=== PATIENT | male | born 1980 | race Two or more races ===

== ENCOUNTER 2019-02-28 13:40 | Emergency (ER) | payer SELFPAY ==
[~2019-02-28] VITALS: Ht 162.6 cm; Wt 108.9 kg
[2019-02-28] MEDS ORDERED: IV NORMAL SALINE 1000ML BAG 1,000 ML IV ONE (15:30)
--- NOTE | 2019-02-28 16:01 | RAD ---
Examination: Acute abdomen series HISTORY: History of constipation, abdominal pain COMPARISON: None available. FINDINGS: Low lung volumes and technique accentuates heart size and pulmonary vascularity. Minimal bibasilar lung atelectasis or infiltrates. No evidence of free air noted under the hemidiaphragm. Large amount of stool identified throughout the colon. IMPRESSION: 1. Large amount of stool identified throughout the colon likely constipation or fecal impaction. 2. Minimal bibasilar lung airspace opacities likely atelectasis or infiltrates. Electronically signed by: Benjamin Fox MD (02/28/2019 3:59 PM) [id number]
[2019-02-28 16:04] LABS: BILIRUBIN,URINE SMALL (NEG); CLARITY,URINE CLEAR; COLOR,URINE AMBER; NITRITE,URINE NEGATIVE (NEG); PROTEIN,URINE 30 mg/dL (NEG-TRACE)
--- NOTE | 2019-02-28 16:05 | PHYS DOC ---
Past Medical History Past Medical History: Diabetes-Type II Past Surgical History: No Surgical History Alcohol Use: None Drug Use: None Adult General Chief Complaint Chief Complaint: ABDOMINAL PAIN HPI HPI Patient is a 38 year old male, accompanied by his , with complaints of abdominal pain for 2-3 months and constipation for the last month with small hard stools. Patient also states he is a type II diabetic and he left his metformin in [place] two months ago. Patient and his state that he recently moved here from [place] and he has not established care with a primary care physician in this area yet. Patient states his last bowel movement was earlier today and was small hard balls of stool. He denies any rectal bleeding, fever, dysuria, back pain, vomiting, or diarrhea. Patient states he does feel a little nauseated. Currently he rates the pain as a 10/10 on the pain scale, he denies any alleviating factors. Review of Systems Review of Systems Constitutional: Denies fever or chills [] Eyes: Denies redness, or eye pain [] HENT: Denies nasal congestion or sore throat [] Respiratory: Denies cough or shortness of breath [] Cardiovascular: No additional information not addressed in HPI [] GI: see HPI : Denies dysuria or hematuria [] Musculoskeletal: Denies back pain or joint pain [] Integument: Denies rash or skin lesions [] Neurologic: Denies headache, focal weakness or sensory changes [] Endocrine: Denies polyuria or polydipsia, see HPI [] Complete systems were reviewed and found to be within normal limits, except as documented in this note. Current Medications Current Medications Current Medications Medications (Trade) Dose Ordered Sig/Cassidy Start Time Stop Time Status Last Admin Dose Admin Potassium Chloride (Klor-Con) 40 meq 1X ONCE 02/28/19 16:45 02/28/19 17:19 DC 02/28/19 17:49 40 MEQ Sodium Chloride 1,000 ml @ 1,000 mls/hr 1X ONCE 02/28/19 15:30 02/28/19 17:19 DC 02/28/19 16:25 1,000 MLS/HR Allergies Allergies Allergies Coded Allergies Type Severity Reaction Last Updated Verified No Known Drug Allergies 02/28/19 No Physical Exam Physical Exam Constitutional: Well developed, well nourished, no acute distress, non-toxic appearance. [] HENT: Normocephalic, atraumatic, bilateral external ears normal, oropharynx moist, no oral exudates, nose normal. [] Eyes: conjunctiva normal, no discharge. [] Neck: Normal range of motion, no stridor. [] Cardiovascular:Heart rate regular rhythm, no murmur [] Lungs & Thorax: Bilateral breath sounds clear to auscultation [] Abdomen: Bowel sounds normal, soft, reports tenderness with palpation of all 4 quadrants, no guarding, no rebound tenderness, no masses, no pulsatile masses. [] Skin: Warm, dry, no erythema, no rash. [] Back: No CVA tenderness. [] Extremities: No cyanosis, ROM intact, no edema. [] Neurologic: Alert and oriented X 3, no focal deficits noted. [] Psychologic: Affect normal, judgement normal, mood normal. [] Current Patient Data Vital Signs Vital Signs Date Time Temp Pulse Resp B/P (MAP) Pulse Ox O2 Delivery O2 Flow Rate FiO2 02/28/19 16:34 68 16 130/85 (100) 100 Room Air 02/28/19 15:18 98.8 98.8 Lab Values Laboratory Tests Test 02/28/19 15:10 02/28/19 15:48 02/28/19 16:00 Glucose (Fingerstick) 226 mg/dL (70-99) H Urine Collection Type Unknown Urine Color Dorcas Urine Clarity Clear Urine pH 6.0 Urine Specific [place] >=1.030 Urine Protein 30 mg/dL (NEG-TRACE) Urine Glucose (UA) 500 mg/dL (NEG) Urine Ketones (Stick) Negative mg/dL (NEG) Urine Blood Negative (NEG) Urine Nitrite Negative (NEG) Urine Bilirubin Small (NEG) Urine Urobilinogen Dipstick 1.0 mg/dL (0.2 mg/dL) Urine Leukocyte Esterase Small (NEG) Urine RBC 0 /HPF (0-2) Urine WBC 20-40 /HPF (0-4) Urine Squamous Epithelial Cells Mod /LPF Urine Bacteria 0 /HPF (0-FEW) Urine Mucus Mod /LPF White Blood Count 12.5 x10^3/uL (4.0-11.0) H Red Blood Count 4.98 x10^6/uL (4.30-5.70) Hemoglobin 15.3 g/dL (13.0-17.5) Hematocrit 44.2 % (39.0-53.0) Mean Corpuscular Volume 89 fL (79-100) Mean Corpuscular Hemoglobin 31 pg (25-35) Mean Corpuscular Hemoglobin Concent 35 g/dL (31-37) Red Cell Distribution Width 12.3 % (11.5-14.5) Platelet Count 174 x10^3/uL (140-400) Neutrophils (%) (Auto) 64 % (31-73) Lymphocytes (%) (Auto) 24 % (24-48) Monocytes (%) (Auto) 6 % (0-9) Eosinophils (%) (Auto) 6 % (0-3) H Basophils (%) (Auto) 1 % (0-3) Neutrophils # (Auto) 8.0 x10^3/uL (1.8-7.7) H Lymphocytes # (Auto) 3.0 x10^3/uL (1.0-4.8) Monocytes # (Auto) 0.8 x10^3/uL (0.0-1.1) Eosinophils # (Auto) 0.7 x10^3/uL (0.0-0.7) Basophils # (Auto) 0.1 x10^3/uL (0.0-0.2) Sodium Level 134 mmol/L (136-145) L Potassium Level 3.3 mmol/L (3.5-5.1) L Chloride Level 98 mmol/L (98-107) Carbon Dioxide Level 28 mmol/L (21-32) Anion Gap 8 (6-14) Blood Urea Nitrogen 11 mg/dL (8-26) Creatinine 0.7 mg/dL (0.7-1.3) Estimated GFR (Cockcroft-Gault) 126.9 BUN/Creatinine Ratio 16 (6-20) Glucose Level 233 mg/dL (70-99) H Calcium Level 9.0 mg/dL (8.5-10.1) Total Bilirubin 0.8 mg/dL (0.2-1.0) Aspartate Amino Transferase (AST) 14 U/L (15-37) L Alanine Aminotransferase (ALT) 25 U/L (16-63) Alkaline Phosphatase 128 U/L (46-116) H Total Protein 8.1 g/dL (6.4-8.2) Albumin 3.4 g/dL (3.4-5.0) Albumin/Globulin Ratio 0.7 (1.0-1.7) L Laboratory Tests 02/28/19 16:00 Laboratory Tests 02/28/19 16:00 EKG EKG [] Radiology/Procedures Radiology/Procedures PROCEDURE: ACUTE ABDOMEN SERIES Examination: Acute abdomen series HISTORY: History of constipation, abdominal pain COMPARISON: None available. FINDINGS: Low lung volumes and technique accentuates heart size and pulmonary vascularity. Minimal bibasilar lung atelectasis or infiltrates. No evidence of free air noted under the hemidiaphragm. Large amount of stool identified throughout the colon. IMPRESSION: 1. Large amount of stool identified throughout the colon likely constipation or fecal impaction. 2. Minimal bibasilar lung airspace opacities likely atelectasis or infiltrates. [] Course & Med Decision Making Course & Med Decision Making Pertinent Labs and Imaging studies reviewed. (See chart for details) Dx: constipation, hyperglycemia AAS revealed a large amount of stool identified throughout the colon likely constipation or fecal impaction. Pt was given a milk of molasses enema in the department and reported feeling better after having BM. CBC unremarkable. Na 133, Kcl 3.3, glucose 233, alk phos 128. Pt was given 40 meq PO Kcl in the department and 1 L of NS. VSS, pain improved. Prescription written for metformin 500 mg PO BID, #60. Pt given list of primary care doctors to establish care with. Recommend 1 capful of miralax twice daily until stools are soft then once a day until stools are regular. Return to the ER if sx worsen, Patient verbalized an understanding of home care, medications, follow-up, and return to ED instructions and was in agreement with the plan of care. [] Dragon Disclaimer Dragon Disclaimer This electronic medical record was generated, in whole or in part, using a voice recognition dictation system. Departure Departure Impression: Primary Impression: Constipation Additional Impression: Hyperglycemia Disposition: 01 HOME, SELF-CARE Condition: STABLE Referrals: NO PCP (PCP) Patient Instructions: Constipation, Adult, [id number], Hyperglycemia, [id number] Additional Instructions: Fill the prescription and use as directed. Recommend you drink 1 capful of miralax twice a day until your bowel movements are soft, then one capful daily until bowel movements are regular. Follow up with a primary care doctor using the list provided. Return to the ER if symptoms worsen. Scripts Metformin Hcl (METFORMIN HCL) 500 Mg Tablet 500 MG PO BIDWMEALS for ANTI-DIABETIC for 30 Days, #60 TAB 0 Refills Prov: TRISHA SOLARES APRN 02/28/19 Problem Qualifiers Primary Impression: Constipation Constipation type: unspecified constipation type Qualified Codes: K59.00 - Constipation, unspecified TRISHA SOLARES APRN Feb 28, 2019 16:05
[2019-02-28 16:09] LABS: BASO # 0.1 x10^3/uL (0.0-0.2); BASO % 1 % (0-3); EOS # 0.7 x10^3/uL (0.0-0.7); EOS % 6 % (0-3); HEMATOCRIT 44.2 % (39.0-53.0); HEMOGLOBIN 15.3 g/dL (13.0-17.5); LYMPH % 24 % (24-48); MEAN CORPUSCULAR HEMOGLOBIN 31 pg (25-35); MEAN CORPUSCULAR HGB CONC 35 g/dL (31-37); MEAN CORPUSCULAR VOLUME 89 fL (79-100); MONO # 0.8 x10^3/uL (0.0-1.1); MONO % 6 % (0-9); NEUT % 64 % (31-73); PLATELET COUNT 174 x10^3/uL (140-400); RED BLOOD COUNT 4.98 x10^6/uL (4.30-5.70); RED CELL DISTRIBUTION WIDTH 12.3 % (11.5-14.5); WHITE BLOOD COUNT 12.5 x10^3/uL (4.0-11.0)
[2019-02-28 16:20] LABS: CREATININE 0.7 mg/dL (0.7-1.3); GFR 126.9; POTASSIUM 3.3 mmol/L (3.5-5.1)
[2019-02-28 16:20] LABS: BACTERIA,URINE 0 /HPF (0-FEW); RBC,URINE 0 /HPF (0-2); SQUAMOUS EPITHELIAL CELL,UR MOD /LPF; WBC,URINE 20-40 /HPF (0-4)
[2019-02-28 16:26] LABS: ALBUMIN 3.4 g/dL (3.4-5.0); ALBUMIN/GLOBULIN RATIO 0.7 (1.0-1.7); TOTAL BILIRUBIN 0.8 mg/dL (0.2-1.0); TOTAL PROTEIN 8.1 g/dL (6.4-8.2)
[2019-02-28 16:34] VITALS: BP 130/85
[2019-02-28] MEDS ORDERED: POTASSIUM CHLORIDE 20 MEQ TABLET.ER. PO ONE (16:45)
[2019-02-28] MEDS ORDERED: METF500T16 PO (17:37)
== END 2019-02-28 18:01 | disposition home or self-care (01) ==
LOC: ER 13:40
DX: K59.00 Constipation, unspecified (principal); E11.65 Type 2 diabetes mellitus with hyperglycemia; R11.0 Nausea
CPT/HCPCS: 36415; 74022; 80053; 81001; 82962; 85025; 87086; 96360; 96361; 99285; J7030

== ENCOUNTER 2019-05-20 10:10 | Emergency (ER) | payer SELFPAY ==
[~2019-05-20] VITALS: Ht 162.6 cm; Wt 92.1 kg
[~2019-05-20 10:10] MED LIST: METF500T16 PO
[2019-05-20] MEDS ORDERED: MAGNESIUM HYDROXIDE 2,400 MG/30 ML ORAL.SUSP. PO ONE (10:45)
[2019-05-20] MEDS ORDERED: IV NORMAL SALINE 1000ML BAG 1,000 ML IV ONE (10:45)
[2019-05-20] MEDS ORDERED: fentaNYL PF VIAL 100 MCG/2 ML VIAL IV ONE (10:45)
[2019-05-20] MEDS ORDERED: ONDANSETRON PF 4 MG/2 ML VIAL. IV ONE (10:45)
[2019-05-20 11:03] LABS: BASO # 0.1 x10^3/uL (0.0-0.2); BASO % 1 % (0-3); EOS # 0.5 x10^3/uL (0.0-0.7); EOS % 5 % (0-3); HEMATOCRIT 45.1 % (39.0-53.0); HEMOGLOBIN 15.6 g/dL (13.0-17.5); LYMPH # 2.4 x10^3/uL (1.0-4.8); LYMPH % 22 % (24-48); MEAN CORPUSCULAR HEMOGLOBIN 30 pg (25-35); MEAN CORPUSCULAR HGB CONC 35 g/dL (31-37); MEAN CORPUSCULAR VOLUME 86 fL (79-100); MONO # 0.5 x10^3/uL (0.0-1.1); MONO % 5 % (0-9); NEUT # 7.3 x10^3/uL (1.8-7.7); NEUT % 68 % (31-73); PLATELET COUNT 169 x10^3/uL (140-400); RED BLOOD COUNT 5.24 x10^6/uL (4.30-5.70); RED CELL DISTRIBUTION WIDTH 12.8 % (11.5-14.5); WHITE BLOOD COUNT 10.8 x10^3/uL (4.0-11.0)
[2019-05-20 11:17] LABS: ALBUMIN 3.2 g/dL (3.4-5.0); ALBUMIN/GLOBULIN RATIO 0.7 (1.0-1.7); CREATININE 0.8 mg/dL (0.7-1.3); GFR 108.8; MAGNESIUM 1.7 mg/dL (1.8-2.4); TOTAL BILIRUBIN 0.5 mg/dL (0.2-1.0); TOTAL PROTEIN 8.1 g/dL (6.4-8.2)
[2019-05-20 11:26] LABS: POTASSIUM 2.9 mmol/L (3.5-5.1)
[2019-05-20 11:31] LABS: BILIRUBIN,URINE SMALL (NEG); CLARITY,URINE CLEAR; COLOR,URINE AMBER; NITRITE,URINE NEGATIVE (NEG); PROTEIN,URINE 30 mg/dL (NEG-TRACE)
[2019-05-20 11:38] LABS: BACTERIA,URINE 0 /HPF (0-FEW); RBC,URINE 0 /HPF (0-2); SQUAMOUS EPITHELIAL CELL,UR MANY /LPF
[2019-05-20] MEDS ORDERED: POTASSIUM CHLORIDE 20 MEQ TABLET.ER. PO ONE (11:45)
[2019-05-20] MEDS ORDERED: MAGNESIUM OXIDE 400 MG TABLET PO ONE (11:45)
--- NOTE | 2019-05-20 11:45 | RAD ---
Indication: Right-sided abdominal pain, constipation TECHNIQUE: Acute abdominal series COMPARISON: 02/28/2019 FINDINGS: Heart is normal in size. Lungs are clear. No subdiaphragmatic lucency to suggest large pneumoperitoneum. No abnormally dilated bowel loops or air-fluid levels. Mild to moderate proximal colonic stool burden. Moderate rectal stool burden. Visualized bones are within normal limits. IMPRESSION: Moderate colonic and rectal stool burden, patient may be considered. No evidence of high-grade bowel obstruction. Electronically signed by: Luis Manuel Syed DO (05/20/2019 11:42 AM) [id number]
[2019-05-20] MEDS ORDERED: POTA20TA82 PO (12:17)
--- NOTE | 2019-05-20 12:18 | PHYS DOC ---
Past Medical History Past Medical History: Constipation, Diabetes-Type II Past Surgical History: No Surgical History Alcohol Use: None Drug Use: None Adult General Chief Complaint Chief Complaint: CONSTIPATION HPI HPI Patient is a 38 year old male, accompanied by his significant other, who presents to the emergency department with complaints of constipation for over a week. Patient states that he has not had a bowel movement in over a week, prior to that he did not have a bowel movement for 2 weeks. He denies any rectal pain, or bleeding. Patient complains of right-sided abdominal pain that radiates through to his back. He denies any nausea, vomiting, diarrhea, fever, cough, shortness of breath, chest pain, or other complaints. Currently rates his pain a 8 out of 10 on the pain scale, he denies any alleviating or exacerbating factors. Patient is a type II diabetic with a supposed take metformin, however he states he is not taking medication because it makes his stomach hurt. He denies any polyuria, polydipsia or polyphagia. Review of Systems Review of Systems Constitutional: Denies fever or chills [] Eyes: Denies change in visual acuity, redness, or eye pain [] HENT: Denies nasal congestion or sore throat [] Respiratory: Denies cough or shortness of breath [] Cardiovascular: No additional information not addressed in HPI [] GI: See HPI : Denies dysuria or hematuria [] Musculoskeletal: Denies back pain Integument: Denies rash or skin lesions [] Neurologic: Denies headache Endocrine: Denies polyuria or polydipsia [] Complete systems were reviewed and found to be within normal limits, except as documented in this note. Current Medications Current Medications Current Medications Medications (Trade) Dose Ordered Sig/Cassidy Start Time Stop Time Status Last Admin Dose Admin Fentanyl Citrate (Fentanyl 2ml Vial) 50 mcg 1X ONCE 05/20/19 10:45 05/20/19 10:56 DC 05/20/19 11:04 50 MCG Magnesium Hydroxide (Milk Of Magnesia) 2,400 mg 1X ONCE 05/20/19 10:45 05/20/19 10:56 DC 05/20/19 11:03 2,400 MG Magnesium Oxide (Magnesium Oxide) 400 mg 1X ONCE 05/20/19 11:45 05/20/19 11:46 DC 05/20/19 12:20 400 MG Ondansetron HCl (Zofran) 4 mg 1X ONCE 05/20/19 10:45 05/20/19 10:56 DC 05/20/19 11:03 4 MG Potassium Chloride (Klor-Con) 40 meq 1X ONCE 05/20/19 11:45 05/20/19 11:46 DC 05/20/19 12:20 40 MEQ Sodium Chloride 1,000 ml @ 1,000 mls/hr 1X ONCE 05/20/19 10:45 05/20/19 11:44 DC 05/20/19 11:03 1,000 MLS/HR Allergies Allergies Allergies Coded Allergies Type Severity Reaction Last Updated Verified No Known Drug Allergies 02/28/19 No Physical Exam Physical Exam Constitutional: Well developed, well nourished, no acute distress, non-toxic appearance, obese. [] HENT: Normocephalic, atraumatic, bilateral external ears normal, oropharynx moist, no oral exudates, nose normal. [] Eyes: PERRLA, EOMI, conjunctiva normal, no discharge. [] Neck: Normal range of motion, no tenderness, supple, no stridor. [] Cardiovascular:Heart rate regular rhythm, no murmur [] Lungs & Thorax: Bilateral breath sounds clear to auscultation [] Abdomen: Bowel sounds normal, soft, RUQ tenderness to palpation, no rebound tenderness, no guarding, no masses, no pulsatile masses. Rectal Exam: Normal tone, No mass, Positive control Stool: Brown, large amount of firm stool in rectum Skin: Warm, dry, no erythema, no rash. [] Back: No tenderness, no CVA tenderness. [] Extremities: No cyanosis, ROM intact, no edema. [] Neurologic: Alert and oriented X 3, no focal deficits noted. [] Psychologic: Affect normal, judgement normal, mood normal. [] Current Patient Data Vital Signs Vital Signs Date Time Temp Pulse Resp B/P (MAP) Pulse Ox O2 Delivery O2 Flow Rate FiO2 05/20/19 11:04 17 97 Room Air 05/20/19 10:22 97.9 101 120/80 (93) 97.9 Lab Values Laboratory Tests Test 05/20/19 10:25 05/20/19 10:54 05/20/19 11:23 Glucose (Fingerstick) 237 mg/dL (70-99) H White Blood Count 10.8 x10^3/uL (4.0-11.0) Red Blood Count 5.24 x10^6/uL (4.30-5.70) Hemoglobin 15.6 g/dL (13.0-17.5) Hematocrit 45.1 % (39.0-53.0) Mean Corpuscular Volume 86 fL (79-100) Mean Corpuscular Hemoglobin 30 pg (25-35) Mean Corpuscular Hemoglobin Concent 35 g/dL (31-37) Red Cell Distribution Width 12.8 % (11.5-14.5) Platelet Count 169 x10^3/uL (140-400) Neutrophils (%) (Auto) 68 % (31-73) Lymphocytes (%) (Auto) 22 % (24-48) L Monocytes (%) (Auto) 5 % (0-9) Eosinophils (%) (Auto) 5 % (0-3) H Basophils (%) (Auto) 1 % (0-3) Neutrophils # (Auto) 7.3 x10^3/uL (1.8-7.7) Lymphocytes # (Auto) 2.4 x10^3/uL (1.0-4.8) Monocytes # (Auto) 0.5 x10^3/uL (0.0-1.1) Eosinophils # (Auto) 0.5 x10^3/uL (0.0-0.7) Basophils # (Auto) 0.1 x10^3/uL (0.0-0.2) Sodium Level 137 mmol/L (136-145) Potassium Level 2.9 mmol/L (3.5-5.1) *L Chloride Level 101 mmol/L (98-107) Carbon Dioxide Level 28 mmol/L (21-32) Anion Gap 8 (6-14) Blood Urea Nitrogen 11 mg/dL (8-26) Creatinine 0.8 mg/dL (0.7-1.3) Estimated GFR (Cockcroft-Gault) 108.8 BUN/Creatinine Ratio 14 (6-20) Glucose Level 251 mg/dL (70-99) H Calcium Level 9.0 mg/dL (8.5-10.1) Magnesium Level 1.7 mg/dL (1.8-2.4) L Total Bilirubin 0.5 mg/dL (0.2-1.0) Aspartate Amino Transferase (AST) 13 U/L (15-37) L Alanine Aminotransferase (ALT) 19 U/L (16-63) Alkaline Phosphatase 112 U/L (46-116) Total Protein 8.1 g/dL (6.4-8.2) Albumin 3.2 g/dL (3.4-5.0) L Albumin/Globulin Ratio 0.7 (1.0-1.7) L Lipase 50 U/L (73-393) L Urine Collection Type Unknown Urine Color Dorcas Urine Clarity Clear Urine pH 6.0 Urine Specific [place] >=1.030 Urine Protein 30 mg/dL (NEG-TRACE) Urine Glucose (UA) >=1000 mg/dL (NEG) Urine Ketones (Stick) Negative mg/dL (NEG) Urine Blood Negative (NEG) Urine Nitrite Negative (NEG) Urine Bilirubin Small (NEG) Urine Urobilinogen Dipstick 1.0 mg/dL (0.2 mg/dL) Urine Leukocyte Esterase Negative (NEG) Urine RBC 0 /HPF (0-2) Urine WBC 5-10 /HPF (0-4) Urine Squamous Epithelial Cells Many /LPF Urine Bacteria 0 /HPF (0-FEW) Urine Mucus Marked /LPF Laboratory Tests 05/20/19 10:54 Laboratory Tests 05/20/19 10:54 EKG EKG [] Radiology/Procedures Radiology/Procedures PROCEDURE: ACUTE ABDOMEN SERIES Indication: Right-sided abdominal pain, constipation TECHNIQUE: Acute abdominal series COMPARISON: 02/28/2019 FINDINGS: Heart is normal in size. Lungs are clear. No subdiaphragmatic lucency to suggest large pneumoperitoneum. No abnormally dilated bowel loops or air-fluid levels. Mild to moderate proximal colonic stool burden. Moderate rectal stool burden. Visualized bones are within normal limits. IMPRESSION: Moderate colonic and rectal stool burden, patient may be considered. No evidence of high-grade bowel obstruction.[] Course & Med Decision Making Course & Med Decision Making Pertinent Labs and Imaging studies reviewed. (See chart for details) dx: Constipation, hypokalemia, hyperglycemia. Pt was given a milk of molasses enema in the ER, he had a large BM and reports relief after enema Pt was given 400 mg of magnesium, and 40 meq of potassium in the ER for hypokalemia and hypomagnesia Xray was negative for bowel obstruction. Lipase was not elevated. Pt provided with list of resources for patient to follow up about his diabetes. Prescription written for 20 meq of KCL x7 days Pt verbalized an understanding of home care, medications, follow-up, and return to ED instructions and was in agreement with the plan of care. [] Dragon Disclaimer Dragon Disclaimer This electronic medical record was generated, in whole or in part, using a voice recognition dictation system. Departure Departure Impression: Primary Impression: Constipation Additional Impressions: Hyperglycemia Hypokalemia Hypomagnesemia Disposition: HOME, SELF-CARE Condition: STABLE Referrals: NO PCP (PCP) Patient Instructions: Constipation, Adult, [id number], Diets for Diabetes, Food Labeling, Hyperglycemia, [id number], Hypokalemia-Brief, Type 2 Diabetes Mellitus, Adult, [id number] Additional Instructions: Take 1 capful of Miralax twice daily until you are having bowel movements, then take 1 capful of miralax dialy. Fill the prescription and take as directed. Increase clear fluids. Take your diabetes medication as prescribed. Follow up with a primary care doctor for further management of your diabetes. Return to the ER if symptoms worsen. Scripts Potassium Chloride (POTASSIUM CHLORIDE) 20 Meq Tablet.er 20 MEQ PO DAILY for 7 Days, #7 TAB.SR 0 Refills Prov: TRISHA SOLARES APRN 05/20/19 Problem Qualifiers Primary Impression: Constipation Constipation type: unspecified constipation type Qualified Codes: K59.00 - Constipation, unspecified TRISHA SOLARES APRN May 20, 2019 12:17
[2019-05-20 12:24] VITALS: BP 109/72
== END 2019-05-20 12:30 | disposition home or self-care (01) ==
LOC: ER 10:10
DX: K59.00 Constipation, unspecified (principal); E11.65 Type 2 diabetes mellitus with hyperglycemia; E87.6 Hypokalemia; E83.42 Hypomagnesemia
CPT/HCPCS: 36415; 74022; 80053; 81001; 82962; 83690; 83735; 85025; 87086; 96361; 96374; 96375; 99285; J2405; J3010; J7030